=== PATIENT | male | born 1970 | race Caucasian/White ===

== ENCOUNTER 2018-05-05 20:53 | Emergency (ER) | payer MEDICAID ==
[~2018-05-05] VITALS: Ht 157.5 cm; Wt 65.8 kg
[~2018-05-05 20:53] MED LIST: IBUP-974; LISI10TA11 PO; MECL-221 PO; ONDA4ODT8
[2018-05-05 21:07] VITALS: BP 139/90
--- NOTE | 2018-05-05 21:07 | NUR ---
TO BED # 11 AMBULATORY, REPORT GIVEN TO DANA KHAN
--- NOTE | 2018-05-05 21:28 | NUR ---
48/M presents to ED with complaints of sore throat, body aches and cough x3 days. Pt states he is having pain with swallowing, denies SOB. No signs of respiratory distress. No drooling noted. Afebriel upon arrival. Lung sounds diminshed throughout. Non productive cough. NAD noted. Family at bedside. Waiting for ERMD eval.
[2018-05-05] MEDS ORDERED: IBUPROFEN 600 MG TAB PO ONE (21:40)
[2018-05-05 22:03] LABS: RSV NEGATIVE (NEGATIVE)
[2018-05-05 22:57] VITALS: BP 128/95
--- NOTE | 2018-05-05 22:57 | NUR ---
Patient discharged with v/s stable. Written and verbal after care instructions given and explained. Patient alert, oriented and verbalized understanding of instructions. Ambulatory with steady gait. All questions addressed prior to discharge. ID band removed. Patient advised to follow up with PMD. Rx of Motrin 600mg given. Patient educated on indication of medication including possible reaction and side effects. Opportunity to ask questions provided and answered.
== END 2018-05-05 22:57 | disposition home or self-care (01) ==
LOC: MED 20:53
DX: J02.8 Acute pharyngitis due to other specified organisms (principal); B97.89 Other viral agents as the cause of diseases classified elsewhere; I10 Essential (primary) hypertension; Z79.899 Other long term (current) drug therapy
CPT/HCPCS: 36415; 87081; 87420; 87804; 99283

== ENCOUNTER 2021-06-08 15:25 | Emergency (ER) | payer MEDICAID ==
[~2021-06-08] VITALS: Ht 160 cm; Wt 68.0 kg
[~2021-06-08 15:25] MED LIST changes: -IBUP-974; -LISI10TA11 PO; +LISI10TA30 PO; -MECL-221 PO; -ONDA4ODT8
[2021-06-08 16:51] VITALS: BP 147/91
[2021-06-08] MEDS ORDERED: NAPR-54 PO (18:00)
[2021-06-08] MEDS ORDERED: PROM118S5 PO (18:00)
[2021-06-08] MEDS ORDERED: CETI1TAB5 PO (18:00)
--- NOTE | 2021-06-08 19:28 | NUR ---
novel swab done. handed to edilma ornelas to walk to lab.
[2021-06-08 19:29] VITALS: BP 147/91
--- NOTE | 2021-06-08 19:29 | NUR ---
dPatient discharged with v/s stable. Written and verbal after care instructions given and explained. Patient alert, oriented and verbalized understanding of instructions. Ambulatory with steady gait. All questions addressed prior to discharge. ID band removed. Patient advised to follow up with PMD. Rx of cetirizine, naproxen, promethazine given. Patient educated on indication of medication including possible reaction and side effects. Opportunity to ask questions provided and answered.
== END 2021-06-08 19:29 | disposition home or self-care (01) ==
LOC: MED 15:25
DX: R05.9 Cough, unspecified (principal); Z20.822 Contact with and (suspected) exposure to COVID-19; M54.6 Pain in thoracic spine; R50.9 Fever, unspecified; I10 Essential (primary) hypertension; Z79.899 Other long term (current) drug therapy
CPT/HCPCS: 71045; 99284; U0003

== ENCOUNTER 2022-07-18 12:07 | Emergency (ER) | payer MEDICAID ==
[~2022-07-18] VITALS: Ht 162.6 cm; Wt 68.0 kg
[~2022-07-18 12:07] MED LIST changes: +CETI1TAB5 PO; +NAPR-54 PO; +PROM118S5 PO
[2022-07-18 12:20] VITALS: BP 129/79
[2022-07-18] MEDS ORDERED: MECLIZINE 25 MG TAB PO ONE (12:30)
[2022-07-18] MEDS ORDERED: NACL 0.9% 1,000 ML IV ONE (12:30)
[2022-07-18 13:15] LABS: BASOPHILS % (AUTO) 0.7 % (0.0-2.0); EOSINOPHILS # (AUTO) 0.1 K/uL (0-0.4); EOSINOPHILS % (AUTO) 1.7 % (0.0-4.0); HEMATOCRIT 45.8 % (36-52); HEMOGLOBIN 15.6 g/dL (12.0-18.0); LYMPHOCYTES # (AUTO) 1.5 K/uL (2.0-11.5); LYMPHOCYTES % (AUTO) 30.6 % (20.5-51.1); MEAN CORPUSCULAR HEMOGLOBIN 31 pg (27-31); MEAN CORPUSCULAR HGB CONC 34 g/dL (33-37); MEAN CORPUSCULAR VOLUME 90.3 fL (80-94); MONOCYTES # (AUTO) 0.5 K/uL (0.8-1.0); MONOCYTES % (AUTO) 9.3 % (1.7-9.3); NEUTROPHILS # (AUTO) 2.9 K/uL (1.8-7.7); NEUTROPHILS % (AUTO) 57.7 % (42.2-75.2); PLATELET COUNT (AUTO) 248 K/uL (140-450); RED BLOOD CELL COUNT(AUTO) 5.07 MIL/uL (4.20-6.10); RED CELL DISTRIBUTION WIDTH 13.3 % (11.6-13.7)
[2022-07-18 13:41] LABS: ALBUMIN 4.2 g/dL (3.4-5.0); ANION GAP 10.1 (8-16); CARBON DIOXIDE 29.1 mmol/L (21-32); CREATININE 0.9 mg/dL (0.6-1.3); POTASSIUM 4.2 mmol/L (3.5-5.1); TOTAL BILIRUBIN 0.9 mg/dL (0.0-1.0)
[2022-07-18] MEDS ORDERED: diphenhydrAMINE 50 MG/ML VIAL IVP ONE (13:50)
[2022-07-18] MEDS ORDERED: METOCLOPRAMIDE 10 MG/2 ML INJ VIAL IVP ONE (13:50)
[2022-07-18] MEDS ORDERED: KETOROLAC 15 MG/ML VIAL IVP ONE (13:50)
--- NOTE | 2022-07-18 14:04 | NUR ---
Pt ambulated with steady gait to restroom.
[2022-07-18 16:00] VITALS: BP 124/86
[2022-07-18] MEDS ORDERED: MECL-303 PO (16:01)
[2022-07-18 16:40] LABS: APPEARANCE,URINE CLEAR (CLEAR); BILIRUBIN,URINE NEGATIVE (NEGATIVE); BLOOD, URINE NEGATIVE (NEGATIVE); COLOR,URINE YELLOW (YELLOW); LEUKOCYTE ESTERASE ,URINE NEGATIVE (NEGATIVE); NITRITE, URINE NEGATIVE (NEGATIVE); PH,URINE 6.5 (5.0-9.0); UGLUCOSE NEGATIVE (NEGATIVE)
--- NOTE | 2022-07-18 17:10 | NUR ---
Patient discharged with v/s stable. Written and verbal after care instructions about Vertigo given and explained. Patient alert, oriented and verbalized understanding of instructions. Ambulatory with steady gait. All questions addressed prior to discharge. ID band removed. Patient advised to follow up with PMD. Rx of Meclizine given. Patient educated on indication of medication including possible reaction and side effects. Opportunity to ask questions provided and answered.
== END 2022-07-18 17:10 | disposition home or self-care (01) ==
LOC: MED 12:07
DX: R42 Dizziness and giddiness (principal); R51.9 Headache, unspecified; R11.2 Nausea with vomiting, unspecified; I10 Essential (primary) hypertension; Z79.899 Other long term (current) drug therapy
CPT/HCPCS: 36415; 70450; 80053; 81003; 85025; 96361; 96374; 96375; 99285; J1200; J1885; J2765; J7030; J8597